=== PATIENT | female | born 2000 | race Two or more races ===

== ENCOUNTER 2024-02-22 08:43 | Outpatient (CLI) | payer OTHER ==
--- NOTE | 2024-02-22 11:07 | Ultrasound Report ---
PROCEDURE: Abdomen Limited INDICATIONS: COLIC TECHNIQUE: Real-time focused scanning was performed of the abdomen, with image documentation. COMPARISONS: None. FINDINGS: Liver: Increased liver echogenicity, commonly mild hepatic steatosis. Gallbladder: No gallstones, sludge, wall thickening or pericholecystic edema. Biliary ducts: Intrahepatic bile ducts are non-dilated. Extrahepatic bile duct caliber measures 2 m m. Normal is 6-7 mm or less in diameter, or 10 mm or less post-cholecystectomy. Pancreas: Visualized portions of the pancreas are sonographically normal. Right kidney: Normal in size and echotexture. Right kidney measures 10.4 cm long. No hydronephrosis or nephrolithiasis. No solid masses. No complex renal cystic lesions which require follow-up. IVC: Intrahepatic inferior vena cava is patent. Miscellaneous: No free abdominal fluid. IMPRESSION: Increased liver echogenicity, commonly mild hepatic steatosis. No gallbladder pathology. Reviewed by: Michael Frederick MD on 02/22/2024 11:06 AM PDT Approved by: Michael Frederick MD on 02/22/2024 11:06 AM PDT Station ID: [id number]
== END 2024-02-22 08:44 | disposition home or self-care (01) ==
LOC: DI 08:43
DX: R10.10 Upper abdominal pain, unspecified (principal)